=== PATIENT | female | born 1970 | race Two or more races ===

== ENCOUNTER 2024-10-06 23:58 | Inpatient (IN) | payer MEDICAID ==
[~2024-10-06] VITALS: Ht 152.4 cm; Wt 64.1 kg
[2024-10-07] VITALS (14 sets, daily range): BP systolic 155–166; BP diastolic 81–83; PULSE 64–77; RESP 12–20; TEMP 98.3–98.8; O2SAT 95–98
[2024-10-07] MEDS ORDERED: magnesium hydroxide 30ml (MOM) UD suspension PO PRN (01:30)
[2024-10-07] MEDS ORDERED: magnesium Cl slow-release 64mg tablet PO PRN (01:30)
[2024-10-07] MEDS ORDERED: HYDROcodone/acetaminophen 5mg/325mg tablet PO PRN (01:30)
[2024-10-07] MEDS ORDERED: ondansetron/PF 4mg/2ml inj IV PRN (01:30)
[2024-10-07] MEDS ORDERED: potassium Cl 40MEQ/1/2NS 520ml 520 ML IV PRN (01:30)
[2024-10-07] MEDS ORDERED: magnesium sulf-water 4G/100mL 100 ML IV PRN (01:30)
[2024-10-07] MEDS ORDERED: magnesium sulf-water 2g/50mL 50 ML IV PRN (01:30)
[2024-10-07] MEDS ORDERED: mag hydrox/Alum hydrox/simeth 30ml oral suspension PO PRN (01:30)
[2024-10-07] MEDS ORDERED: potassium Cl 20 mEq SR tablet PO PRN ×2 (01:30)
[2024-10-07] MEDS ORDERED: HYDROcodone/acetaminophen 10/325mg tab PO PRN (01:30)
[2024-10-07] MEDS ORDERED: acetaminophen 325mg tablet PO PRN (01:30)
[2024-10-07 02:16] LABS: BASOPHILS # (AUTO) 0.1 X10'3 (0-0.2); BASOPHILS % (AUTO) 0.5 % (0-1); EOSINOPHILS # (AUTO) 0.1 X10'3 (0-0.9); EOSINOPHILS % (AUTO) 0.4 % (0-6); HEMATOCRIT 33.7 % (35.0-45.0); HEMOGLOBIN 11.1 g/dl (12.0-16.0); LYMPHOCYTES # (AUTO) 0.7 X10'3 (1.1-4.8); LYMPHOCYTES % (AUTO) 3.9 % (21-51); MEAN CORPUSCULAR VOLUME 99.9 FL (78-98); MONOCYTES # (AUTO) 1.7 X10'3 (0-0.9); MONOCYTES % (AUTO) 9.7 % (2-12); NEUTROPHILS # (AUTO) 15.2 X10'3 (1.8-7.7); NEUTROPHILS % (AUTO) 85.5 % (42-75); PLATELET COUNT 159 X10'3 (140-440); RED BLOOD COUNT 3.37 X10'6 (4.20-5.60); RED CELL DISTRIBUTION WIDTH 15.2 % (11.5-14.5); WHITE BLOOD COUNT 17.7 X10'3 (4.5-11.0)
[2024-10-07 02:28] LABS: INR 1.1 INR; PROTHROMBIN TIME 11.5 SECONDS (9.0-12.0)
[2024-10-07 02:34] LABS: ALANINE AMINOTRANSFERASE 21 U/L (12-78); ALBUMIN/GLOBULIN RATIO 0.7 (1.1-1.5); ALKALINE PHOSPHATASE 73 IU/L (46-116); ANION GAP 13 (8-16); ASPARTATE AMINO TRANSFERASE 20 U/L (10-37); BILIRUBIN,TOTAL 0.7 MG/DL (0.1-1.0); BLOOD UREA NITROGEN 52 MG/DL (7-18); BUN/CREATININE RATIO 6.3 (10.0-20.0); CALCIUM 9.1 MG/DL (8.5-10.1); CHLORIDE 105 MMOL/L (99-107); CREATININE 8.32 MG/DL (0.40-0.90); GLUCOSE 108 MG/DL (70-104); MAGNESIUM 2.1 MG/DL (1.5-2.4); PHOSPHORUS 3.1 MG/DL (2.3-4.5); POTASSIUM 4.4 MMOL/L (3.5-5.1); SODIUM 142 MMOL/L (135-145); TOTAL CARBON DIOXIDE 23.9 MMOL/L (24-32); TOTAL PROTEIN 7.2 G/DL (6.4-8.2); eCRCL 6 ML/MIN; eGFR 5 ML/MIN
[2024-10-07 02:35] LABS: PRO BRAIN NATRIURETIC PEPTIDE > 30000 PG/ML (0-125)
[2024-10-07 02:44] LABS: HEMOGLOBIN A1C 4.7 % (4.5-6.2)
[2024-10-07] MEDS ORDERED: azithromycin/NS 500mg/250ml 250 ML IV SCH (02:45)
[2024-10-07] MEDS ORDERED: ipratropium/albuterol 3ml nebule NEB PRN (02:45)
[2024-10-07] MEDS ORDERED: METO5TAB7 PO (02:57)
[2024-10-07] MEDS ORDERED: ASPI-611 PO (02:57)
[2024-10-07] MEDS ORDERED: NIFE90TA61 PO (02:57)
[2024-10-07] MEDS ORDERED: LABE200T8 PO (02:57)
[2024-10-07] MEDS ORDERED: FURO80TA3 PO (02:57)
[2024-10-07] MEDS ORDERED: BUSP15TA7 PO (02:57)
[2024-10-07] MEDS ORDERED: VANCOMYCIN 1GM 200ML H20 (PEG) 200 ML IV ONE (03:20)
[2024-10-07] MEDS ORDERED: VANCOMYCIN 1GM 200ML H20 (PEG) 200 ML IV PRN (03:20)
[2024-10-07] MEDS: ipratropium/albuterol 3ml nebule NEB SCH (03:28)
[2024-10-07 03:58] LABS: BILIRUBIN,URINE NEGATIVE (Neg); CLARITY,URINE CLEAR (Clear); COLOR,URINE YELLOW (Yellow); GLUCOSE, URINE 100 mg/dl (Neg); KETONES,URINE NEGATIVE (Neg); LEUKOCYTE ESTERASE ,URINE TRACE (Neg); NITRITES, URINE NEGATIVE (Neg); OCCULT BLOOD,URINE SMALL (Neg); PH,URINE 7.5 (4.8-8.0); PROTEIN,URINE 100 mg/dl (Neg); UROBILINOGEN,URINE 0.2 E.U/dL (0.2-1.0)
[2024-10-07 04:05] LABS: UA COLLECTION TYPE VOIDED
[2024-10-07 04:06] LABS: SQUAMOUS EPITHELIAL CELL,UR MANY /LPF (FEW); TRANSITIONAL EPI CELLS,URINE FEW /HPF
[2024-10-07 04:07] LABS: BACTERIA,URINE 1+ /HPF (Neg); MUCUS STRANDS NONE SEEN /LPF (Neg); RBC,URINE 0-2 /HPF (0-2)
[2024-10-07] MEDS ORDERED: PHO667C PO (04:14)
[2024-10-07] MEDS ORDERED: LOKELMA PO (04:17)
[2024-10-07] MEDS ORDERED: SODI10PO PO (04:17)
[2024-10-07] MEDS ORDERED: ZAR2.5T PO (04:20)
[2024-10-07] MEDS ORDERED: FURO-150 PO (04:20)
[2024-10-07] MEDS ORDERED: ASPI81TA52 PO (04:20)
[2024-10-07] MEDS: acetaminophen 325mg tablet PO PRN (06:34)
[2024-10-07] MEDS: K and/or MAG REPLACEMENT MC SCH (08:00)
[2024-10-07] MEDS ORDERED: CefTRIAXone/D5W-Rocephin 1gm 50 ML IV SCH (08:00)
[2024-10-07] MEDS: aspirin 81mg, enteric-coated 1 TAB TABLET.DR PO SCH (08:00)
[2024-10-07] MEDS: labetalol 100mg tablet PO SCH (08:00)
[2024-10-07] MEDS: busPIRone 15mg tablet PO SCH (08:01)
[2024-10-07] MEDS: docusate sod 100mg capsule PO SCH (08:01)
[2024-10-07] MEDS: piperacillin/tazo 3.375gm/50ml 50 ML IV SCH (08:02)
[2024-10-07] MEDS: heparin, porcine 5000 units/ml vial SQ SCH ×2 (08:02→18:04)
[2024-10-07 13:21] LABS: VANCOMYCIN,RANDOM 34.8 ug/mL (20.0-30.0)
[2024-10-07] MEDS: calcium acetate 667mg (PhosLO) capsule PO SCH (18:03)
[2024-10-07] MEDS: furosemide 20MG tablet PO SCH (21:15)
[2024-10-07] MEDS: metolazone 2.5mg tablet PO SCH (21:17)
[2024-10-07] MEDS: NIFEdipine XL 30mg tablet PO SCH (21:18)
[2024-10-08] VITALS (20 sets, daily range): BP systolic 91–163; BP diastolic 60–85; PULSE 73–87; RESP 14–20; TEMP 97.7–98.6; O2SAT 93–98
[2024-10-08] MEDS: VANCOMYCIN LEVEL IV SCH (02:47)
[2024-10-08 06:03] LABS: BASOPHILS # (AUTO) 0.1 X10'3 (0-0.2); BASOPHILS % (AUTO) 0.7 % (0-1); EOSINOPHILS # (AUTO) 0.5 X10'3 (0-0.9); EOSINOPHILS % (AUTO) 3.7 % (0-6); HEMATOCRIT 32.3 % (35.0-45.0); HEMOGLOBIN 10.7 g/dl (12.0-16.0); LYMPHOCYTES # (AUTO) 1.2 X10'3 (1.1-4.8); LYMPHOCYTES % (AUTO) 8.5 % (21-51); MEAN CORPUSCULAR HEMOGLOBIN 33.6 PG (27.0-31.0); MEAN CORPUSCULAR HGB CONC 33.2 g/dL (33.0-36.5); MEAN CORPUSCULAR VOLUME 101.2 FL (78-98); MEAN PLATELET VOLUME 9.8 FL (7.4-10.4); MONOCYTES # (AUTO) 0.9 X10'3 (0-0.9); MONOCYTES % (AUTO) 6.3 % (2-12); NEUTROPHILS # (AUTO) 11.4 X10'3 (1.8-7.7); NEUTROPHILS % (AUTO) 80.8 % (42-75); PLATELET COUNT 139 X10'3 (140-440); RED BLOOD COUNT 3.19 X10'6 (4.20-5.60); RED CELL DISTRIBUTION WIDTH 15.3 % (11.5-14.5); WHITE BLOOD COUNT 14.1 X10'3 (4.5-11.0)
[2024-10-08 06:11] LABS: INR 1.1 INR; PROTHROMBIN TIME 11.4 SECONDS (9.0-12.0)
[2024-10-08 06:34] LABS: ALANINE AMINOTRANSFERASE 12 U/L (12-78); ALBUMIN 2.8 G/DL (3.4-5.0); ALBUMIN/GLOBULIN RATIO 0.7 (1.1-1.5); ALKALINE PHOSPHATASE 74 IU/L (46-116); ANION GAP 14 (8-16); ASPARTATE AMINO TRANSFERASE 10 U/L (10-37); BILIRUBIN,TOTAL 0.5 MG/DL (0.1-1.0); BLOOD UREA NITROGEN 78 MG/DL (7-18); BUN/CREATININE RATIO 7.4 (10.0-20.0); CALCIUM 8.6 MG/DL (8.5-10.1); CHLORIDE 101 MMOL/L (99-107); CHOL/HDL RATIO 3.4 (0.00-4.99); CHOLESTEROL 151 MG/DL (0-200); CREATININE 10.53 MG/DL (0.40-0.90); GLUCOSE 106 MG/DL (70-104); HDL CHOLESTEROL 45 MG/DL (35-60); LDL CHOLESTEROL 67 MG/DL (50-100); MAGNESIUM 2.3 MG/DL (1.5-2.4); PHOSPHORUS 4.3 MG/DL (2.3-4.5); POTASSIUM 4.9 MMOL/L (3.5-5.1); SODIUM 138 MMOL/L (135-145); TOTAL CARBON DIOXIDE 22.9 MMOL/L (24-32); TOTAL PROTEIN 7.1 G/DL (6.4-8.2); TRIGLYCERIDES 87 MG/DL (20-135); VANCOMYCIN,RANDOM 25.8 ug/mL (20.0-30.0); eCRCL 4 ML/MIN; eGFR 4 ML/MIN
[2024-10-08] MEDS ORDERED: aspirin 81mg, enteric-coated 1 TAB TABLET.DR PO SCH (08:00)
[2024-10-08] MEDS: heparin 1,000 units/ml 10ml inj IV ONE (12:25)
[2024-10-08] MEDS: heparin 1,000 units/ml 10ml inj HE ONE ×2 (12:25→12:26)
[2024-10-08 17:31] LABS: GLUCOSE,BODY FLUID 134 MG/DL; LDH,BODY FLUID 78 U/L; TOTAL PROTEIN,BODY FLUID 4.1 G/DL
[2024-10-08 17:49] LABS: BF MESOTHELIAL CELLS FEW; BF RBC COUNT 14 /CU MM; BF WBC COUNT 280 /CU MM (0-1000); BFAPPEAR HAZY; BFCOLOR YELLOW; BFSOURCE RIGHT PLEURAL FLD; BFVOLUME 60 ML; EOSINOPHILS,BODY FLUID 17 %; LYMPHOCYTES,BODY FLUID 3 %
[2024-10-08 17:50] LABS: MONOCYTES,BODY FLUID 68 %; NEUTROPHILS,BODY FLUID 12 %
[2024-10-08 17:54] LABS: PLEURAL FLUID PH 7.471 (7.63-7.65)
[2024-10-08 17:55] LABS: BFSOURCE RIGHT PLEURAL FLD
[2024-10-08] MEDS ORDERED: LOKELMA PO (18:35)
[2024-10-08] MEDS ORDERED: FURO-150 PO (18:35)
[2024-10-08] MEDS ORDERED: ZAR2.5T PO (18:37)
[2024-10-08] MEDS: aspirin 81mg, enteric-coated 1 TAB TABLET.DR PO SCH (21:04)
[2024-10-08] MEDS: predniSONE 20 mg tablet PO SCH (21:05)
[2024-10-09] VITALS (13 sets, daily range): BP systolic 133–157; BP diastolic 76–86; PULSE 62–89; RESP 14–16; TEMP 96.8–98.1; O2SAT 95–99
[2024-10-09 06:22] LABS: BASOPHILS % (AUTO) 0.3 % (0-1); EOSINOPHILS % (AUTO) 0.2 % (0-6); HEMATOCRIT 33.3 % (35.0-45.0); HEMOGLOBIN 11.2 g/dl (12.0-16.0); LYMPHOCYTES # (AUTO) 0.2 X10'3 (1.1-4.8); LYMPHOCYTES % (AUTO) 3.4 % (21-51); MEAN CORPUSCULAR HGB CONC 33.7 g/dL (33.0-36.5); MEAN CORPUSCULAR VOLUME 101.1 FL (78-98); MONOCYTES # (AUTO) 0.1 X10'3 (0-0.9); MONOCYTES % (AUTO) 1.3 % (2-12); NEUTROPHILS # (AUTO) 6.5 X10'3 (1.8-7.7); NEUTROPHILS % (AUTO) 94.8 % (42-75); PLATELET COUNT 149 X10'3 (140-440); RED BLOOD COUNT 3.29 X10'6 (4.20-5.60); RED CELL DISTRIBUTION WIDTH 14.9 % (11.5-14.5); WHITE BLOOD COUNT 6.8 X10'3 (4.5-11.0)
[2024-10-09 06:32] LABS: PROTHROMBIN TIME 10.4 SECONDS (9.0-12.0)
[2024-10-09 06:54] LABS: ALANINE AMINOTRANSFERASE 16 U/L (12-78); ALBUMIN 2.7 G/DL (3.4-5.0); ALBUMIN/GLOBULIN RATIO 0.6 (1.1-1.5); ALKALINE PHOSPHATASE 73 IU/L (46-116); ANION GAP 13 (8-16); ASPARTATE AMINO TRANSFERASE 9 U/L (10-37); BILIRUBIN,TOTAL 0.5 MG/DL (0.1-1.0); BLOOD UREA NITROGEN 38 MG/DL (7-18); BUN/CREATININE RATIO 6.1 (10.0-20.0); CALCIUM 8.9 MG/DL (8.5-10.1); CHLORIDE 102 MMOL/L (99-107); CREATININE 6.25 MG/DL (0.40-0.90); GLUCOSE 135 MG/DL (70-104); MAGNESIUM 2.3 MG/DL (1.5-2.4); PHOSPHORUS 2.8 MG/DL (2.3-4.5); SODIUM 139 MMOL/L (135-145); TOTAL PROTEIN 7.5 G/DL (6.4-8.2); VANCOMYCIN,RANDOM 16.9 ug/mL (20.0-30.0); eCRCL 7 ML/MIN; eGFR 7 ML/MIN
[2024-10-09] MEDS: NUT.TX.IMP.RENAL FXN,LAC-REDUC (Nepro) 237 ML VANILLA PO SCH (12:30)
[2024-10-09] MEDS: azithromycin 250mg tablet PO SCH (13:05)
[2024-10-09] MEDS: CefTRIAXone/D5W-Rocephin 1gm 50 ML IV SCH (13:05)
[2024-10-09] MEDS ORDERED: morphine 2 MG/ML inj. syringe IV PRN (21:00)
[2024-10-10 03:51] VITALS: PULSE 72; RESP 16; O2SAT 95
[2024-10-10 03:58] VITALS: PULSE 71; RESP 16
[2024-10-10 06:00] VITALS: BP 150/80; PULSE 79; RESP 15; TEMP 98.6; O2SAT 95
[2024-10-10 06:01] LABS: BASOPHILS % (AUTO) 0.4 % (0-1); EOSINOPHILS # (AUTO) 0.1 X10'3 (0-0.9); EOSINOPHILS % (AUTO) 1.6 % (0-6); LYMPHOCYTES # (AUTO) 1.2 X10'3 (1.1-4.8); LYMPHOCYTES % (AUTO) 13.5 % (21-51); MEAN CORPUSCULAR HGB CONC 33.5 g/dL (33.0-36.5); MEAN CORPUSCULAR VOLUME 101.4 FL (78-98); MONOCYTES # (AUTO) 0.9 X10'3 (0-0.9); MONOCYTES % (AUTO) 9.7 % (2-12); NEUTROPHILS # (AUTO) 6.9 X10'3 (1.8-7.7); NEUTROPHILS % (AUTO) 74.8 % (42-75); PLATELET COUNT 169 X10'3 (140-440); RED BLOOD COUNT 3.25 X10'6 (4.20-5.60); RED CELL DISTRIBUTION WIDTH 15.3 % (11.5-14.5); WHITE BLOOD COUNT 9.2 X10'3 (4.5-11.0)
[2024-10-10 06:07] LABS: PROTHROMBIN TIME 10.3 SECONDS (9.0-12.0)
[2024-10-10 06:27] LABS: ALANINE AMINOTRANSFERASE 11 U/L (12-78); ALBUMIN 2.7 G/DL (3.4-5.0); ALBUMIN/GLOBULIN RATIO 0.6 (1.1-1.5); ALKALINE PHOSPHATASE 76 IU/L (46-116); ANION GAP 11 (8-16); ASPARTATE AMINO TRANSFERASE 8 U/L (10-37); BILIRUBIN,TOTAL 0.4 MG/DL (0.1-1.0); BLOOD UREA NITROGEN 71 MG/DL (7-18); CALCIUM 9.2 MG/DL (8.5-10.1); CHLORIDE 100 MMOL/L (99-107); CREATININE 7.93 MG/DL (0.40-0.90); GLUCOSE 96 MG/DL (70-104); MAGNESIUM 2.4 MG/DL (1.5-2.4); PHOSPHORUS 2.7 MG/DL (2.3-4.5); POTASSIUM 5.1 MMOL/L (3.5-5.1); SODIUM 136 MMOL/L (135-145); TOTAL CARBON DIOXIDE 25.2 MMOL/L (24-32); eCRCL 6 ML/MIN; eGFR 5 ML/MIN
[2024-10-10] MEDS ORDERED: AZI25OT PO (08:02)
[2024-10-10] MEDS ORDERED: CEFD300C3 PO ×2 (08:03→12:55)
[2024-10-10] MEDS ORDERED: PRED10TA23 PO ×2 (08:08→12:33)
[2024-10-10] MEDS ORDERED: DOCU100C40 PO (08:15)
[2024-10-10] MEDS ORDERED: LACT1CAP55 PO (12:33)
[2024-10-11 05:37] LABS: HBSAG SCREEN Negative (Negative); HEP B SURF AB Reactive (.)
[2024-10-13] MEDS ORDERED: SODIUM ZIRCONIUM CYCLOSILICATE 10 GM POWD.PACK PO SCH (08:00)
[2024-10-14] MEDS ORDERED: SODIUM ZIRCONIUM CYCLOSILICATE 10 GM POWD.PACK PO SCH (08:00)
== END 2024-10-10 08:45 | disposition home health service (06) | DRG 720 ==
LOC: ER 10-07 00:01 → ED HOLD 10-07 01:37 → ORTHO 4S 10-07 14:53
PROVIDERS: ADMIT Internal Medicine Pulmonary Disease; ATTEND Family Medicine
PROC: CB121ZZ Planar Nuclear Medicine Imaging of Lungs and Bronchi using Technetium 99m (Tc-99m) (ICD-10-PCS; 2024-10-07)
PROC: 0W993ZZ Drainage of Right Pleural Cavity, Percutaneous Approach (ICD-10-PCS; principal; 2024-10-08)
PROC: 5A1D70Z Performance of Urinary Filtration, Intermittent, Less than 6 Hours Per Day (ICD-10-PCS; 2024-10-08)
DX: A41.9 Sepsis, unspecified organism (principal); J96.01 Acute respiratory failure with hypoxia; I31.39 Other pericardial effusion (noninflammatory); J18.9 Pneumonia, unspecified organism; I12.0 Hypertensive chronic kidney disease with stage 5 chronic kidney disease or end stage renal disease; J90 Pleural effusion, not elsewhere classified; Z20.822 Contact with and (suspected) exposure to COVID-19; E87.70 Fluid overload, unspecified; N18.6 End stage renal disease; Z99.2 Dependence on renal dialysis; Z79.82 Long term (current) use of aspirin; Z79.899 Other long term (current) drug therapy
CPT/HCPCS: 32555; 36415; 71045; 78582; 80053; 80061; 80202; 81001; 82945; 83036; 83605; 83615; 83735; 83880; 83986; 84100; 84145; 84157; 85025; 85379; 85610; 86706; 87040; 87070; 87081; 87088; 87340; 87502; 87503; 87811; 89051; 93306; 93970; 94640; 94760; 99285; A9539; A9540; E1594; G0257; G0378; J0696; J1644; J2543; J7030; J7040; J7512